=== PATIENT | female | born 1985 | race Two or more races ===

== ENCOUNTER 2016-06-26 06:45 | Day surgery (SDC) | payer OTHER ==
[2016-06-23 09:42] VITALS: BMI 22.1
[~2016-06-26] VITALS: Ht 167.6 cm; Wt 61.8 kg
[2016-06-26] VITALS (9 sets, daily range): BP systolic 100–114; BP diastolic 54–73; PULSE 64–94; RESP 17–33; Ht 167.6 cm; Wt 61.8 kg
[~2016-06-26 06:45] MED LIST: LACTATED RINGER'S 1,000 ML IV SCH; PREN-39 PO; PRENAT PO
[2016-06-26 07:36] LABS: BASOPHILS % 0.7 % (0.0-2.0); EOSINOPHILS % 0.8 % (0.0-7.0); HEMATOCRIT 38.7 % (37.0-47.0); LYMPHOCYTES # 2.4 10^3/ul (0.8-2.9); MEAN CORPUSCULAR HEMOGLOBIN 25.5 pg (29.0-33.0); MEAN CORPUSCULAR HGB CONC 33.6 g/dl (32.0-37.0); MEAN PLATELET VOLUME 8.6 fl (7.4-10.4); MONOCYTE # 0.3 10^3/ul (0.3-0.9); MONOCYTES % 5.3 % (0.0-11.0); NEUTROPHIL # 2.8 10^3/ul (1.6-7.5); NEUTROPHILS % 50.2 % (39.0-77.0); PLATELET COUNT 228 10^3/UL (140-440); RED BLOOD COUNT 5.09 10^6/ul (4.20-5.40); RED CELL DISTRIBUTION WIDTH 14.8 % (11.5-14.5); UNCORRECTED WBC 5.6 10^3/ul (4.8-10.8); WHITE BLOOD COUNT 5.6 10^3/ul (4.8-10.8)
[2016-06-26] MEDS ORDERED: PROPOFOL 20 ML ONE (07:38)
[2016-06-26] MEDS ORDERED: METOCLOPRAMIDE 10 MG INJ ONE (07:38)
[2016-06-26] MEDS ORDERED: KETOROLAC 30 MG INJ ONE (07:38)
[2016-06-26] MEDS ORDERED: MIDAZOLAM 1 MG/ML 2 ML INJ ONE (07:38)
[2016-06-26 07:43] LABS: CONDITION 1; LH ANALYZER COMMENTS 1
[2016-06-26] MEDS ORDERED: FENTAnyl 50 MCG/ML VIAL ONE (07:54)
[2016-06-26] MEDS ORDERED: ONDANSETRON 4 MG INJ IV PRN (08:00)
[2016-06-26] MEDS ORDERED: DIPHENHYDRAMINE 50 MG INJ IV PRN (08:00)
[2016-06-26] MEDS ORDERED: HYDROmorphONE (0.2 MG/ML) 10ML SYG IV PRN ×3 (08:00)
[2016-06-26] MEDS ORDERED: MEPERIDINE 25 MG INJ IV PRN (08:00)
[2016-06-26] MEDS ORDERED: OXYCODONE/ACETAMINOPHEN (5/325) TAB PO PRN ×2 (08:00)
--- NOTE | 2016-06-27 11:24 | OPR ---
DATE OF OPERATION: PREOPERATIVE DIAGNOSIS: A 31-year-old 4, para 4, desires permanent surgical sterilization. POSTOPERATIVE DIAGNOSIS: A 31-year-old 4, para 4, desires permanent surgical sterilization. OPERATION PERFORMED: Hysteroscopic tubal occlusion by [employer] implants, Lot #[id number]. SURGEON: Haja Hopson MD PRESS MAINTAINER: None. FINDINGS: Bimanual size within normal, position anteverted. Hysteroscopic view of the uterus adequ ate. [place] normal. Adhesions absent. Placement of coils, 3 trailing coils on the left and 3 trail ing coils on the right. ESTIMATED BLOOD LOSS: Minimal. SPECIMEN: None. COMPLICATIONS OF PROCEDURE: None. TYPE OF ANESTHESIA: General. DESCRIPTION OF PROCEDURE: After explaining the risks, benefits and alternatives, the patient and co nsent signed in chart, the patient was taken to the operating room where general anesthesia was obta ined without difficulty. The patient was then examined under anesthesia and found to have a small a nteverted uterus with normal adnexa. She was then placed in a dorsal lithotomy position and prepare d and draped in normal sterile fashion. A heavy weighted speculum was then placed in the patient's vagina and the anterior lip of the cervix was grasped with a single tooth tenaculum. A hysteroscope was then entered into the uterine cavity with findings noted above. Both tubal ostia were identifi ed. The delivery catheter was then inserted into the tubal ostia up to the black marker. The deliv iman catheter was retracted and the device deployed. After 10 seconds, the catheter was detached fro m the device. The device was in good position with 3 trailing coils on the right side. The procedu re was repeated on the left side with 3 trailing coils. The procedure was completed. All instrumen ts were removed from the patient's vagina. The patient tolerated procedure well. All counts were c orrect x2. Before discharge, the patient was given a prescription for hysterosalpingogram in 3 damon hs and control use until hysterosalpingogram shows tubal occlusion. Dictated By: HAJA BOSS/MEGAN Conf#: [id number] DID#: [id number]
== END 2016-06-26 10:10 | disposition home or self-care (01) ==
LOC: SDS 06:45
PROVIDERS: ATTEND Obstetrics & Gynecology
DX: Z30.2 Encounter for sterilization (principal)
CPT/HCPCS: 58565; 84703; 85025; 86850; 86900; 86901; A4264; J1885; J2250; J2405; J2765; J3010; Z7512; Z7610